=== PATIENT | male | born 1990 | race Caucasian/White ===

== ENCOUNTER 2021-05-01 18:57 | Emergency (ER) | payer BC ==
[2021-05-01] MEDS: Diphtheria,Pertussis(Acell),Tetanus Vaccine 0.5 ML SDV IM ONE (20:05)
--- NOTE | 2021-05-01 20:20 | EDM.PDOC ---
ED HPI GENERAL MEDICAL PROBLEM - General Chief Complaint: Lower Extremity Injury/Pain Stated Complaint: laceration to left knee Time Seen by Provider: 05/01/21 19:41 Source of Information: Reports: Patient History Limitations: Reports: No Limitations - History of Present Illness INITIAL COMMENTS - FREE TEXT/NARRATIVE: 31-year-old male presents to the ED complaining of a laceration secondary to a chainsaw incident. Patient estimates minimal blood loss. Patient kicked his foot up near the chainsaw bar while the chain was still moving making a glancing contact. Patient does not remember his last tetanus booster. No other complaints. No other trauma Onset: Sudden Context: Reports: Trauma Review of Systems - Review of Systems Review Of Systems: See Below Reason Not Obtained: Minimal ROS due to nature of injury. Constitutional: Reports: No Symptoms Musculoskeletal: Reports: Other (2 lacerations below the left knee) Skin: Reports: No Symptoms Neurological: Reports: No Symptoms Psychiatric: Reports: No Symptoms ED EXAM, GENERAL - Physical Exam Exam: See Below Free Text/Narrative:: Limited exam to the left leg specifically to the inferior portion of the left knee 2 lacerations on the anterior surface the more medial laceration was 1 cm running laterally, approximately 6 mm in depth bleeding was controlled prior to intervention. Second laceration the more lateral of the two was an oblique laceration approximately 3 centimeters with the approximate depth of 8 mm bleeding was controlled prior to intervention. No other signs of trauma no other injuries noted Exam Limited By: No Limitations General Appearance: Alert, WD/WN, No Apparent Distress Throat/Mouth: Normal Voice, No Airway Compromise Head: Atraumatic, Normocephalic Respiratory/Chest: No Respiratory Distress, Lungs Clear, Normal Breath Sounds, No Accessory Muscle Use, Chest Non-Tender Cardiovascular: Normal Peripheral Pulses, Regular Rate, Rhythm, No Edema, No Gallop, No JVD, No Murmur, No Rub Neurological: Alert, Oriented, Normal Cognition Psychiatric: Normal Affect, Normal Mood Skin Exam: Warm, Dry, Intact, Normal Color, No Rash ED TRAUMA EXTREMITY PROCEDURES - Laceration/Wound Repair Left Lower Anterior Distal Knee Appearance: Superficial, Subcutaneous, Muscle, Linear, Clean Distal NVT: Neuro & Vascular Intact, No Tendon Injury Anesthetic Type: Local Local Anesthesia - Lidocaine (Xylocaine): 2% with EPI Local Anesthetic Volume: Other (9 cc) Skin Prep: Providone-Iodine (Betadine), Sterile Drape Exploration/Debridement/Repair: Wound Explored, Explored to Base, No Foreign Material Found Closed With: Sutures Suture Size: 3-0 # of Sutures: 4 (Ethilon, wide spacing on sutures to allow drainage from wound due to chainsaw bar oil) Suture Size: 3-0 # of Sutures: 2 (Ethilon, wide spacing on sutures to allow drainage due to chainsaw bar oil) Sterile Dressing Applied: Nurse Tetanus Status Addressed: Yes Complications: No Departure - Departure Time of Disposition: 20:30 Disposition: Home, Self-Care 01 Condition: Good Clinical Impression: Laceration of knee without complication Qualifiers: Encounter type: initial encounter Laterality: left Qualified Code(s): S81.012A - Laceration without foreign body, left knee, initial encounter - Discharge Information *PRESCRIPTION DRUG MONITORING PROGRAM REVIEWED*: No *COPY OF PRESCRIPTION DRUG MONITORING REPORT IN PATIENT GILBERTO: No Instructions: Laceration Care, Adult Referrals: PCP,Unknown [Primary Care Provider] - - Assessment/Plan Assessment:: Assessment: 2 lacerations inferior to the knee on the anterior surface. Bleeding controlled Plan: ABC, history, exam, gross decontamination, local anesthetic 2% lidocaine with epi, wound irrigated and cleaned, sutures placed, bacitracin and dressing and bandage by RN, all questions that the patient had were answered to their satisfaction patient understood the treatment plan and agreed patient was discharged in stable condition. Patient to have sutures removed between 10 and 14 days preferably closer to 14
== END 2021-05-01 20:22 | disposition home or self-care (01) ==
LOC: LB.ED 18:57
DX: S81.012A Laceration without foreign body, left knee, initial encounter (principal); Z23 Encounter for immunization; W29.3XXA Contact with powered garden and outdoor hand tools and machinery, initial encounter
CPT/HCPCS: 12002; 90471; 90715; 99282-25